=== PATIENT | female | born 1995 | race Hispanic/Latino ===

== ENCOUNTER 2023-04-22 20:36 | Emergency (ER) | payer BC, OTHER ==
[2023-04-22] MEDS ORDERED: diphenhydrAMINE 50 MG/ML VIAL ONE (21:06)
[2023-04-22] MEDS ORDERED: Prochlorperazine 10 MG/2 ML VIAL ONE (21:06)
[2023-04-22] MEDS ORDERED: Mag-Al Plus 1200 MG/1200 MG/120 MG/30 ML UDCUP ONE (21:22)
[2023-04-22 21:47] LABS: #Eosinphils 0.1 10x3/uL (0.0-0.5); #Monocytes 0.7 10x3/uL (0.0-1.1); #Neutrophils 7.5 10x3/uL (1.5-8.4); %Basophils 0.4 % (0.0-2.0); %Monocytes 6.5 % (0.0-10.0); %Neutrophils 68.7 % (40.0-75.0); Hematocrit 35.4 % (34.9-44.5); Hemoglobin 12.3 g/dL (12.0-15.5); Mean Corpuscular HGB CONC 34.7 g/dL (32.0-36.0); Mean Corpuscular Hemoglobin 30.8 pg (27.0-33.0); Mean Corpuscular Volume 88.5 fl (81.6-98.3); Mean Platelet Volume 12.4 fl (7.4-10.4); Platelet Count 236 10x3/uL (150-450); RBC Distribution Width 13.2 % (11.5-14.5); White Blood Cell (WBC) Count 10.9 10x3/uL (3.5-10.5)
[2023-04-22 22:03] LABS: ALT (SGPT) 24 U/L (8-55); AST (SGOT) 17 U/L (5-34); Albumin 3.5 g/dL (3.5-5.0); Alkaline Phosphatase 57 U/L (40-110); Anion Gap 13 mmol/L (10-20); BUN (Urea Nitrogen) 7 mg/dL (7.0-18.7); Bilirubin, Total 0.2 mg/dL (0.2-1.2); Calc. Creatinine Clearance 0 mL/min (70-130); Carbon Dioxide 19 mmol/L (22-29); Chloride 109 mmol/L (98-107); Estimated GFR 125; Globulin 2.7 g/dL (2.4-3.5); Glucose 104 mg/dL (70-105); Lipase 31 U/L (8-78); Potassium 3.4 mmol/L (3.5-5.1); Protein, Total 6.2 g/dL (6.0-8.3); Sodium 138 mmol/L (136-145)
[2023-04-22 22:36] LABS: Bilirubin Neg (Negative); Blood, Urine Negative (Negative); Clarity Slightly Cloudy (Clear); Glucose, Urine (Dipstick) Normal (Negative); Ketone, Urine Negative (Negative); Leukocyte Negative (Negative); Nitrite Positive (Negative); Protein, Urine (Dipstick) Negative (Neg-Trace); Specific Gravity, Urine 1.015 (1.005-1.030); Urobilinogen Normal mg/dL (Less than 2); pH, Urine 6.5 (5.0-9.0)
[2023-04-22 22:50] LABS: Bacteria/HPF 4+ HPF (None Seen); CAUTI Indications for Culture Pregnancy; RBC/HPF 0-3 HPF (0-3)
[2023-04-22 22:51] LABS: Urine Culture Reflex Yes Yes
== END 2023-04-22 22:56 | disposition home or self-care (01) ==
LOC: CSHERS 20:36
DX: O99.891 Other specified diseases and conditions complicating pregnancy (principal); R10.84 Generalized abdominal pain; R51.9 Headache, unspecified; Z3A.17 17 weeks gestation of pregnancy
CPT/HCPCS: 76815; 80053; 81001; 83690; 85025; 87077; 87086; 87186; 96374; 96375; J0780; J1200

== ENCOUNTER 2023-06-24 12:22 | Day surgery (SDC) | payer BC, OTHER ==
[2023-06-24 13:08] VITALS: BMI 31.3
[2023-06-24] MEDS ORDERED: hydrALAZINE 20 MG/ML VIAL SLOW IVP PRN (13:25)
== END 2023-06-24 16:35 | disposition home or self-care (01) ==
LOC: CSHLD/OP 12:22
PROVIDERS: ATTEND Obstetrics & Gynecology
DX: O36.8120 Decreased fetal movements, second trimester, not applicable or unspecified (principal); O26.852 Spotting complicating pregnancy, second trimester; O34.211 Maternal care for low transverse scar from previous cesarean delivery; Z3A.25 25 weeks gestation of pregnancy
CPT/HCPCS: 76815; 99283

== ENCOUNTER 2023-08-08 08:53 | Day surgery (SDC) | payer BC, OTHER, SELFPAY ==
[2023-08-08] MEDS ORDERED: Ondansetron ODT 8 MG TAB SL SCH (11:30)
[2023-08-08 12:50] LABS: Bilirubin Neg (Negative); Blood, Urine Negative (Negative); Clarity Slightly Cloudy (Clear); Glucose, Urine (Dipstick) Normal (Negative); Ketone, Urine Negative (Negative); Leukocyte 25 (Negative); Nitrite Positive (Negative); Protein, Urine (Dipstick) Negative (Neg-Trace); Urobilinogen Normal mg/dL (Less than 2); pH, Urine 6.5 (5.0-9.0)
[2023-08-08 13:12] LABS: Bacteria/HPF 4+ HPF (None Seen); CAUTI Indications for Culture Dysuria,urgency,freq; RBC/HPF 0-3 HPF (0-3)
[2023-08-08 13:14] LABS: Urine Culture Reflex No No
== END 2023-08-08 13:31 | disposition home or self-care (01) ==
LOC: CSHLD/OP 08:53
PROVIDERS: ATTEND Family Medicine
DX: O99.891 Other specified diseases and conditions complicating pregnancy (principal); R10.2 Pelvic and perineal pain; O34.211 Maternal care for low transverse scar from previous cesarean delivery; O23.43 Unspecified infection of urinary tract in pregnancy, third trimester; O47.03 False labor before 37 completed weeks of gestation, third trimester; Z79.899 Other long term (current) drug therapy; Z3A.31 31 weeks gestation of pregnancy
CPT/HCPCS: 81001; Q0162

== ENCOUNTER 2023-08-10 03:22 | Day surgery (SDC) | payer SELFPAY ==
[2023-08-10 04:10] VITALS: BMI 32.1
[2023-08-10] MEDS ORDERED: hydrALAZINE 20 MG/ML VIAL SLOW IVP PRN (04:14)
[2023-08-10] MEDS ORDERED: Ondansetron ODT 4 MG TAB SL PRN (04:17)
[2023-08-10] MEDS ORDERED: Ondansetron ODT 4 MG TAB PO SCH (04:30)
== END 2023-08-10 04:45 | disposition home or self-care (01) ==
LOC: CSHLD/OP 03:22
PROVIDERS: ATTEND Family Medicine
DX: O36.8130 Decreased fetal movements, third trimester, not applicable or unspecified (principal); O47.03 False labor before 37 completed weeks of gestation, third trimester; O23.43 Unspecified infection of urinary tract in pregnancy, third trimester; N39.0 Urinary tract infection, site not specified; O34.211 Maternal care for low transverse scar from previous cesarean delivery; Z79.899 Other long term (current) drug therapy; Z3A.32 32 weeks gestation of pregnancy
CPT/HCPCS: 99282; Q0162

== ENCOUNTER 2023-08-26 10:07 | Day surgery (SDC) | payer SELFPAY ==
[2023-08-26] MEDS ORDERED: hydrALAZINE 20 MG/ML VIAL SLOW IVP PRN (10:50)
[2023-08-26 11:33] LABS: Fetal Membranes Rupture No Membranes Rupture (No Rupture)
== END 2023-08-26 11:48 | disposition home or self-care (01) ==
LOC: CSHLD/OP 10:07
PROVIDERS: ATTEND Family Medicine
DX: O99.891 Other specified diseases and conditions complicating pregnancy (principal); N89.8 Other specified noninflammatory disorders of vagina; O36.8130 Decreased fetal movements, third trimester, not applicable or unspecified; Z3A.34 34 weeks gestation of pregnancy; Z79.899 Other long term (current) drug therapy
CPT/HCPCS: 84112; 87480; 87510; 87660; 99283

== ENCOUNTER 2023-09-07 12:07 | Day surgery (SDC) | payer SELFPAY ==
[2023-09-07 12:41] VITALS: BMI 32.8
[2023-09-07] MEDS ORDERED: hydrALAZINE 20 MG/ML VIAL SLOW IVP PRN (12:54)
[2023-09-07] MEDS ORDERED: Lactated Ringer's 1,000 ML IV SCH ×2 (13:00)
[2023-09-07] MEDS ORDERED: Morphine 4 MG/ML VIAL ONE (16:19)
[2023-09-07] MEDS ORDERED: Morphine 4 MG/ML VIAL SLOW IVP SCH (16:30)
== END 2023-09-07 18:35 | disposition home or self-care (01) ==
LOC: CSHLD/OP 12:07
PROVIDERS: ATTEND Family Medicine
DX: O47.03 False labor before 37 completed weeks of gestation, third trimester (principal); Z79.899 Other long term (current) drug therapy; Z3A.36 36 weeks gestation of pregnancy
CPT/HCPCS: 96360; 96361; 99283; J2270

== ENCOUNTER 2023-09-18 18:05 | Day surgery (SDC) | payer BC, OTHER ==
[2023-09-18 18:30] VITALS: BMI 32.9
[2023-09-18] MEDS ORDERED: hydrALAZINE 20 MG/ML VIAL SLOW IVP PRN (18:55)
== END 2023-09-18 18:55 | disposition home or self-care (01) ==
LOC: CSHLD/OP 18:05
PROVIDERS: ATTEND Family Medicine
DX: O47.1 False labor at or after 37 completed weeks of gestation (principal); O34.211 Maternal care for low transverse scar from previous cesarean delivery; Z79.899 Other long term (current) drug therapy; Z3A.37 37 weeks gestation of pregnancy

== ENCOUNTER 2023-09-28 10:57 | Inpatient (IN) | payer BC, OTHER ==
[2023-09-28] MEDS ORDERED: Oxytocin 30 units/NS 500 ML 500 ML IV SCH ×2 (11:45→15:04)
[2023-09-28] MEDS ORDERED: hydrALAZINE 20 MG/ML VIAL SLOW IVP PRN ×2 (11:45→15:04)
[2023-09-28] MEDS ORDERED: Carboprost 250 MCG/ML AMP IM PRN (11:45)
[2023-09-28] MEDS ORDERED: Famotidine/PF 20 mg/2ml Vial SLOW IVP PRN (11:45)
[2023-09-28] MEDS ORDERED: Methylergonovine 0.2 MG/ML VIAL IM PRN (11:45)
[2023-09-28] MEDS ORDERED: Tranexamic Acid 1,000 MG/10 ML VIAL IVP PRN (11:45)
[2023-09-28] MEDS ORDERED: fentaNYL 50 mcg/mL 1 mL Vial SLOW IVP PRN ×2 (11:45→14:35)
[2023-09-28] MEDS ORDERED: Misoprostol 200 MCG TAB PR PRN (11:45)
[2023-09-28] MEDS ORDERED: Ondansetron PF 4 MG/2 ML Vial IVP PRN ×4 (11:45→15:04)
[2023-09-28] MEDS ORDERED: Acetaminophen 500 MG TAB PO PRN (11:45)
[2023-09-28] MEDS ORDERED: Lactated Ringer's 1,000 ML IV SCH (11:45)
[2023-09-28] MEDS ORDERED: Diphenoxylate HCl/Atropine Tablet PO PRN (11:45)
[2023-09-28] MEDS ORDERED: CEFAZOLIN 2 GM in Sodium Chloride 0.9% 100 ML IVPB SCH (11:45)
[2023-09-28] MEDS ORDERED: Bicitra 30 ML UDCUP PO PRN (11:45)
[2023-09-28] MEDS ORDERED: Promethazine HCl 25 MG/ML VIAL IM PRN ×3 (11:45→15:04)
[2023-09-28] MEDS ORDERED: Oxytocin 10 UNITS/ML VIAL ONE (12:13)
[2023-09-28] MEDS ORDERED: Morphine PF 10 MG/10 ML VIAL ONE (12:13)
[2023-09-28] MEDS ORDERED: Phenylephrine 40 MG/NS 250 ML 250 ML ONE (12:13)
[2023-09-28] MEDS ORDERED: Glycopyrrolate 0.2 MG/ML 5 ML SYRINGE ONE (12:13)
[2023-09-28] MEDS ORDERED: Ketorolac Tromethamine 30 MG (1 mL) VIAL ONE (12:13)
[2023-09-28] MEDS ORDERED: PHENYLEPHRINE-NS 100 MCG/ML 10 ML SYRINGE ONE (12:13)
[2023-09-28] MEDS ORDERED: Ondansetron PF 4 MG/2 ML Vial ONE (12:13)
[2023-09-28] MEDS ORDERED: Dexamethasone 4 mg/ml Vial ONE (12:13)
[2023-09-28] MEDS ORDERED: ePHEDrine Sulfate 50 MG/10 ML VIAL ONE (12:13)
[2023-09-28] MEDS ORDERED: Sodium Bicarbonate 2.5 MEQ/5 ML SDV ONE (12:14)
[2023-09-28 12:30] LABS: Hematocrit 37.4 % (34.9-44.5); Hemoglobin 12.7 g/dL (12.0-15.5); Mean Corpuscular Hemoglobin 29.2 pg (27.0-33.0); Mean Platelet Volume 13.5 fl (7.4-10.4); Platelet Count 215 10x3/uL (150-450); RBC Distribution Width 14.6 % (11.5-14.5); Red Blood Cell (RBC) Count 4.35 10x6/uL (3.90-5.03); White Blood Cell (WBC) Count 11.7 10x3/uL (3.5-10.5)
[2023-09-28 12:32] VITALS: BMI 33.7
[2023-09-28] MEDS ORDERED: Phytonadione Neonatal 1 MG/0.5 ML AMP ONE (13:20)
[2023-09-28] MEDS ORDERED: Erythromycin Base 0.5% Oint 1 GM TUBE ONE (13:20)
[2023-09-28] MEDS ORDERED: Meperidine HCl/PF 25 MG (1 mL) VIAL SLOW IVP PRN (14:35)
[2023-09-28] MEDS ORDERED: Naloxone HCl 0.4 mg/ml Vial IV PRN (14:35)
[2023-09-28] MEDS ORDERED: HYDROmorphone 0.5 MG/0.5 ML SYRINGE SLOW IVP PRN (14:35)
[2023-09-28] MEDS ORDERED: Ketorolac Tromethamine 30 MG (1 mL) VIAL IVP PRN (14:35)
[2023-09-28] MEDS ORDERED: Promethazine HCl 25 MG SUPP PR PRN (14:35)
[2023-09-28] MEDS ORDERED: Moisturizing Cream (Eucerin) 113 GM JAR TOP PRN (14:35)
[2023-09-28] MEDS ORDERED: Naloxone HCl 0.4 mg/ml Vial IVP PRN ×2 (14:35)
[2023-09-28] MEDS ORDERED: diphenhydrAMINE 50 MG/ML VIAL IVP PRN (14:35)
[2023-09-28] MEDS ORDERED: Communication Order-Pharmacy FS SCH (14:45)
[2023-09-28] MEDS ORDERED: metroNIDAZOLE 500 MG in Premix 1 BAG IVPB SCH (15:00)
[2023-09-28] MEDS ORDERED: Boostrix 0.5 ML (Tdap) VIAL (>/=7 yrs of age) IM ONE (15:04)
[2023-09-28] MEDS ORDERED: Bisacodyl 10 MG SUPP PR PRN (15:04)
[2023-09-28] MEDS ORDERED: Lanolin Ointment 7 GM TUBE TOP PRN (15:04)
[2023-09-28] MEDS ORDERED: Meperidine HCl/PF 25 MG (1 mL) VIAL IM PRN (15:04)
[2023-09-28] MEDS ORDERED: Simethicone Chewable 80 MG TAB PO PRN (15:04)
[2023-09-28] MEDS ORDERED: diphenhydrAMINE 25 MG CAP PO PRN (15:04)
[2023-09-28 15:12] LABS: HBSAg Index 0.16 S/CO (0-0.99); Hep B Surf Ag - L&D Non-Reactive S/CO (NonReactive)
[2023-09-28 15:13] LABS: Syphilis Antibody Nonreactive (Nonreactive); Syphilis Antibody Index 0.04 S/CO (<1.00 Non-Reactive)
[2023-09-28 15:14] LABS: HIV (1/2) Antibody/Antigen Non-Reactive (NonReactive); HIV 1/2 INDEX 0.12 S/CO (<1.00)
[2023-09-28] MEDS: Ferrous Sulfate 325 MG TAB PO SCH (20:24)
[2023-09-28] MEDS: Docusate 100 MG CAP PO SCH (20:24)
[2023-09-28] MEDS: CEFAZOLIN 2 GM in Sodium Chloride 0.9% 100 ML IVPB SCH (21:36)
[2023-09-28] MEDS: Ketorolac Tromethamine 30 MG (1 mL) VIAL IVP SCH (21:36)
[2023-09-28] MEDS: metroNIDAZOLE 500 MG in Premix 1 BAG IVPB SCH (22:32)
[2023-09-29] MEDS ORDERED: HYDROcodone/Acetaminophen 5/325 mg Tablet PO PRN (02:45)
[2023-09-29] MEDS: Ketorolac Tromethamine 30 MG (1 mL) VIAL IVP SCH ×3 (03:19→14:20)
[2023-09-29] MEDS: CEFAZOLIN 2 GM in Sodium Chloride 0.9% 100 ML IVPB SCH ×3 (05:47→21:27)
[2023-09-29 05:49] LABS: Hematocrit 28.5 % (34.9-44.5); Hemoglobin 9.7 g/dL (12.0-15.5); Mean Corpuscular Hemoglobin 30.1 pg (27.0-33.0); Mean Corpuscular Volume 88.5 fl (81.6-98.3); Mean Platelet Volume 12.6 fl (7.4-10.4); Platelet Count 170 10x3/uL (150-450); RBC Distribution Width 14.2 % (11.5-14.5); Red Blood Cell (RBC) Count 3.22 10x6/uL (3.90-5.03); White Blood Cell (WBC) Count 11.8 10x3/uL (3.5-10.5)
[2023-09-29] MEDS: metroNIDAZOLE 500 MG in Premix 1 BAG IVPB SCH ×3 (06:28→22:10)
[2023-09-29] MEDS: Docusate 100 MG CAP PO SCH ×2 (09:01→21:24)
[2023-09-29] MEDS: Prenatal Vitamin 1 TAB PO SCH (09:01)
[2023-09-29] MEDS: Ferrous Sulfate 325 MG TAB PO SCH ×2 (09:01→21:24)
[2023-09-29] MEDS: HYDROcodone/Acetaminophen 5/325 mg Tablet PO PRN (21:24)
[2023-09-29] MEDS: Ibuprofen 800 MG TAB PO SCH (22:10)
[2023-09-30] MEDS: CEFAZOLIN 2 GM in Sodium Chloride 0.9% 100 ML IVPB SCH ×2 (05:41→14:06)
[2023-09-30] MEDS: Ibuprofen 800 MG TAB PO SCH ×3 (05:41→21:09)
[2023-09-30] MEDS: metroNIDAZOLE 500 MG in Premix 1 BAG IVPB SCH ×2 (06:59→14:44)
[2023-09-30] MEDS: Docusate 100 MG CAP PO SCH ×2 (09:10→21:08)
[2023-09-30] MEDS: Prenatal Vitamin 1 TAB PO SCH (09:10)
[2023-09-30] MEDS: Ferrous Sulfate 325 MG TAB PO SCH ×2 (09:10→21:09)
[2023-09-30] MEDS: metroNIDAZOLE 500 MG TAB PO SCH (21:09)
[2023-09-30] MEDS: Cephalexin 500 MG CAP PO SCH (21:09)
[2023-10-01] MEDS: HYDROcodone/Acetaminophen 5/325 mg Tablet PO PRN (03:31)
[2023-10-01] MEDS: Ibuprofen 800 MG TAB PO SCH (05:53)
[2023-10-01] MEDS: Prenatal Vitamin 1 TAB PO SCH (07:58)
[2023-10-01] MEDS: metroNIDAZOLE 500 MG TAB PO SCH (07:58)
[2023-10-01] MEDS: Docusate 100 MG CAP PO SCH (07:58)
[2023-10-01] MEDS: Cephalexin 500 MG CAP PO SCH (07:59)
[2023-10-01] MEDS: Ferrous Sulfate 325 MG TAB PO SCH (07:59)
[2023-10-01 08:28] VITALS: BP 128/72; TEMP 98.7
== END 2023-10-01 13:50 | disposition home or self-care (01) | DRG 788 ==
LOC: CSHLD 10:57 → CSHPP 17:18
PROVIDERS: ADMIT Family Medicine; ATTEND Family Medicine
PROC: 10D00Z1 Extraction of Products of Conception, Low, Open Approach (ICD-10-PCS; principal; 2023-09-28)
PROC: 3E0P05Z Introduction of Adhesion Barrier into Female Reproductive, Open Approach (ICD-10-PCS; 2023-09-28)
DX: O34.211 Maternal care for low transverse scar from previous cesarean delivery (principal); O32.2XX0 Maternal care for transverse and oblique lie, not applicable or unspecified; Z3A.39 39 weeks gestation of pregnancy; Z37.0 Single live birth
CPT/HCPCS: 36415; 85027; 86780; 86850; 86900; 86901; 87340; 87389; J1100; J1885; J2175; J2274; J2405; J2590; J3010; J3490

== ENCOUNTER 2024-03-24 18:25 | Emergency (ER) | payer BC, OTHER ==
[2024-03-24 20:24] LABS: Influenza A by NAA Not Detected (NotDetected); Influenza B by NAA Not Detected (NotDetected); SARS-CoV-2 NAA Rapid Test DETECTED (NotDetected)
== END 2024-03-24 20:25 | disposition home or self-care (01) ==
LOC: CSHERS 18:25
DX: U07.1 COVID-19 (principal)
CPT/HCPCS: 99283

== ENCOUNTER 2024-06-30 09:59 | Emergency (ER) | payer BC, OTHER ==
[2024-06-30] MEDS ORDERED: Ketorolac Tromethamine 30 MG (1 mL) VIAL ONE (10:36)
== END 2024-06-30 11:47 | disposition home or self-care (01) ==
LOC: CSHERS 09:59
DX: R51.9 Headache, unspecified (principal)
CPT/HCPCS: 96372; 99283; J1885

== ENCOUNTER 2024-08-22 17:44 | Emergency (ER) | payer BC, OTHER ==
[2024-08-22 19:25] LABS: Bilirubin Neg (Negative); Blood, Urine Negative (Negative); Clarity Cloudy (Clear); Glucose, Urine (Dipstick) Normal (Negative); Ketone, Urine Negative (Negative); Leukocyte Negative (Negative); Nitrite Negative (Negative); Protein, Urine (Dipstick) Negative (Neg-Trace); Specific Gravity, Urine 1.015 (1.005-1.030); Urobilinogen Normal mg/dL (Less than 2)
[2024-08-22 19:35] LABS: Bacteria/HPF 1+ HPF (None Seen); CAUTI Indications for Culture Pregnancy; RBC/HPF 0-3 HPF (0-3); Squamous Epithelial 0-3 HPF (0-3); WBC/HPF 0-3 HPF (0-3)
[2024-08-22 19:37] LABS: Urine Culture Reflex Yes Yes
[2024-08-22 19:57] LABS: #Basophils 0.07 10x3/uL (0.0-0.2); #Eosinophils 0.15 10x3/uL (0.0-0.5); #Monocytes 0.99 10x3/uL (0.0-1.1); #Neutrophils 8.72 10x3/uL (1.5-8.4); %Basophils 0.5 % (0.0-2.0); %Eosinophils 1.2 % (0.0-6.0); %Lymphocytes 23.3 % (18.0-47.0); %Monocytes 7.6 % (0.0-10.0); Hematocrit 39.1 % (34.9-44.5); Hemoglobin 13.1 g/dL (12.0-15.5); Mean Corpuscular HGB CONC 33.5 g/dL (32.0-36.0); Mean Corpuscular Volume 89.7 fL (81.6-98.3); Mean Platelet Volume 12.3 fL (7.4-10.4); Platelet Count 252 10x3/uL (150-450); RBC Distribution Width 13.1 % (11.5-14.5); Red Blood Cell (RBC) Count 4.36 10x6/uL (3.90-5.03)
[2024-08-22 20:22] LABS: ALT (SGPT) 35 U/L (8-55); AST (SGOT) 20 U/L (5-34); Albumin 3.5 g/dL (3.5-5.0); Alkaline Phosphatase 65 U/L (40-110); Anion Gap 13 mmol/L (10-20); BUN (Urea Nitrogen) 8 mg/dL (7.0-18.7); Bilirubin, Total 0.2 mg/dL (0.2-1.2); Calc. Creatinine Clearance 0 mL/min (70-130); Calcium 9.3 mg/dL (7.8-10.44); Carbon Dioxide 22 mmol/L (22-29); Chloride 106 mmol/L (98-107); Estimated GFR 114; Globulin 3.2 g/dL (2.4-3.5); Glucose 89 mg/dL (70-105); Lipase 27 U/L (8-78); Potassium 3.7 mmol/L (3.5-5.1); Protein, Total 6.7 g/dL (6.0-8.3); Sodium 137 mmol/L (136-145)
== END 2024-08-22 20:50 | disposition home or self-care (01) ==
LOC: CSHERS 17:44
DX: O26.891 Other specified pregnancy related conditions, first trimester (principal); R11.0 Nausea; Z3A.01 Less than 8 weeks gestation of pregnancy
CPT/HCPCS: 36415; 76856; 80053; 81001; 83690; 84702; 85025; 86900; 86901; 87086; 87186

== ENCOUNTER 2024-12-18 13:21 | Day surgery (SDC) | payer OTHER ==
[2024-12-18 14:02] VITALS: BMI 31.9
[2024-12-18] MEDS ORDERED: hydrALAZINE 20 MG/ML VIAL SLOW IVP PRN (14:28)
[2024-12-18 14:49] LABS: #Basophils 0.05 10x3/uL (0.0-0.2); #Eosinophils 0.28 10x3/uL (0.0-0.5); #Monocytes 0.89 10x3/uL (0.0-1.1); #Neutrophils 8.75 10x3/uL (1.5-8.4); %Basophils 0.4 % (0.0-2.0); %Eosinophils 2.3 % (0.0-6.0); %Monocytes 7.3 % (0.0-10.0); %Neutrophils 72.1 % (40.0-75.0); Hematocrit 33.9 % (34.9-44.5); Hemoglobin 11.5 g/dL (12.0-15.5); Mean Corpuscular HGB CONC 33.9 g/dL (32.0-36.0); Mean Corpuscular Hemoglobin 30.7 pg (27.0-33.0); Mean Corpuscular Volume 90.4 fL (81.6-98.3); Mean Platelet Volume 12.3 fL (7.4-10.4); Platelet Count 215 10x3/uL (150-450); RBC Distribution Width 13.5 % (11.5-14.5); Red Blood Cell (RBC) Count 3.75 10x6/uL (3.90-5.03); White Blood Cell (WBC) Count 12.15 10x3/uL (3.5-10.5)
[2024-12-18 15:19] LABS: ALT (SGPT) 12 U/L (Less than 34); AST (SGOT) 15 U/L (11-34); Albumin 3.2 g/dL (3.1-4.5); Alkaline Phosphatase 76 U/L (40-110); Anion Gap 13 mmol/L (10-20); BUN (Urea Nitrogen) 5 mg/dL (7.0-18.7); Bilirubin, Total 0.2 mg/dL (0.3-1.2); Calc. Creatinine Clearance 226 mL/min (70-130); Calcium 8.5 mg/dL (7.8-10.44); Carbon Dioxide 21 mmol/L (22-29); Chloride 109 mmol/L (98-107); Estimated GFR 130; Globulin 3.3 g/dL (2.4-3.5); Glucose 99 mg/dL (70-105); Potassium 3.5 mmol/L (3.5-5.1); Protein, Total 6.5 g/dL (6.0-8.3); Sodium 139 mmol/L (136-145)
[2024-12-18 15:33] LABS: Bilirubin Neg (Negative); Blood, Urine Negative (Negative); Clarity Slightly Cloudy (Clear); Glucose, Urine (Dipstick) Normal (Negative); Ketone, Urine 5 mg/dL (Negative); Leukocyte Negative (Negative); Nitrite Negative (Negative); Protein, Urine (Dipstick) 15 mg/dl (Neg-Trace); Specific Gravity, Urine 1.025 (1.005-1.030); Urobilinogen Normal mg/dL (Less than 2)
[2024-12-18 15:48] LABS: Fetal Membranes Rupture No Membranes Rupture (No Rupture)
[2024-12-18 16:11] LABS: CAUTI Indications for Culture Pregnancy; Calcium Oxalate Crystals 2+ HPF (None Seen); RBC/HPF 0-3 HPF (0-3)
[2024-12-18 16:12] LABS: Bacteria/HPF 3+ HPF (None Seen); Mucous/LPF 2+ LPF (<2+)
[2024-12-18 16:15] LABS: Urine Culture Reflex Yes Yes
== END 2024-12-18 18:20 | disposition home or self-care (01) ==
LOC: CSHLD/OP 13:21
PROVIDERS: ATTEND Family Medicine
DX: O23.592 Infection of other part of genital tract in pregnancy, second trimester (principal); B96.89 Other specified bacterial agents as the cause of diseases classified elsewhere; O99.282 Endocrine, nutritional and metabolic diseases complicating pregnancy, second trimester; E86.0 Dehydration; O99.891 Other specified diseases and conditions complicating pregnancy; R10.13 Epigastric pain; R11.0 Nausea; Z3A.24 24 weeks gestation of pregnancy; Z87.59 Personal history of other complications of pregnancy, childbirth and the puerperium; Z90.49 Acquired absence of other specified parts of digestive tract; Z79.899 Other long term (current) drug therapy
CPT/HCPCS: 36415; 76815; 80053; 81001; 84112; 85025; 87077; 87086; 87480; 87510; 87660; 99285